=== PATIENT | female | born 1960 | race Caucasian/White ===

== ENCOUNTER → 2020-09-22 | Outpatient (CLI) | payer MEDICARE, OTHER ==
[~2020-09-22] MED LIST: A+D ZINC OXIDE113 GM TP; ANUSOL-HC CREAM30 GM PR; ATIVAN0.5 MG PO; BACITRACIN3.5 GM OP; CLARITIN10 M2 PO; COLACE100 MG PO; DUODERM1 EACH TP; FOLIC ACID 1 MG1 MG PO; IPRAT-ALBUT 0.5-3 ML NEB; LISINOPRIL2.5 MG PO; NEXIUM40 MG PO; NORVASC2.5 MG PO; PAXIL30 MG PO; SEROQUEL100 MG PO; TYLENOL325 MG PO; ZESTRIL10 MG PO; ZOFRAN4 MG PO
[2020-09-22 11:11] LABS: HEMOGLOBIN 13.5 gm/dl (12.3-15.3); RED BLOOD COUNT 4.69 M/UL (4.00-5.10); WHITE BLOOD COUNT 6.3 K/UL (4.5-11.0)
[2020-09-22 11:40] LABS: BUN/CREATININE RATIO 31 (0-10)
== END ==
LOC: LAB 09:30
PROVIDERS: Registered Nurse Administrator
DX: Z79.899 Other long term (current) drug therapy (principal)
CPT/HCPCS: 36415; 80053; 80061; 83036; 85025

== ENCOUNTER 2020-12-10 08:58 | Emergency (ER) | payer MEDICARE, OTHER ==
[~2020-12-10 08:58] MED LIST changes: -ZOFRAN4 MG PO
[2020-12-10 10:47] LABS: HEMOGLOBIN 13.9 gm/dl (12.3-15.3); RED BLOOD COUNT 4.99 M/UL (4.00-5.10)
[2020-12-10 11:21] LABS: BUN/CREATININE RATIO 28 (0-10)
[2020-12-10] MEDS ORDERED: ZOFRAN4 MG PO (12:43)
== END 2020-12-10 13:05 | disposition home or self-care (01) ==
LOC: ER1 08:58
PROVIDERS: Physician Assistant
DX: R11.2 Nausea with vomiting, unspecified (principal); K21.9 Gastro-esophageal reflux disease without esophagitis; I10 Essential (primary) hypertension
CPT/HCPCS: 80053; 83605; 83690; 85025; 87040; 99284

== ENCOUNTER → 2021-03-24 | Outpatient (CLI) | payer MEDICARE, OTHER ==
[~2021-03-24] MED LIST changes: +ZOFRAN4 MG PO
== END ==
LOC: KOH-I 12:01
DX: R06.02 Shortness of breath (principal); K44.9 Diaphragmatic hernia without obstruction or gangrene; J98.11 Atelectasis; R91.8 Other nonspecific abnormal finding of lung field
CPT/HCPCS: 71046

== ENCOUNTER 2021-05-10 16:06 | Emergency (ER) | payer MEDICARE, OTHER ==
[2021-05-10 17:51] LABS: HEMOGLOBIN 13.8 gm/dl (12.3-15.3); RED BLOOD COUNT 4.76 M/UL (4.00-5.10); WHITE BLOOD COUNT 6.3 K/UL (4.5-11.0)
[2021-05-10 18:12] LABS: BUN/CREATININE RATIO 20 (0-10)
[2021-05-10] MEDS ORDERED: DULCOLAX5 MG PO (22:46)
[2021-05-10] MEDS ORDERED: CEFUROXIME500 MG PO (22:46)
[2021-05-10] MEDS ORDERED: ONDANSETRON ODT4 MG SL (22:46)
== END 2021-05-10 23:09 | disposition home or self-care (01) ==
LOC: ER1 16:06
PROVIDERS: Physician Assistant
DX: K80.80 Other cholelithiasis without obstruction (principal); R60.0 Localized edema; R11.2 Nausea with vomiting, unspecified
CPT/HCPCS: 80053; 81001; 85025; 99284; Q9967